=== PATIENT | male | born 1990 | race Caucasian/White ===

== ENCOUNTER 2020-06-11 11:12 | Emergency (ER) | payer OTHER ==
[~2020-06-11] VITALS: Ht 170.2 cm; Wt 71.3 kg
[2020-06-11 11:13] VITALS: BP 135/76
[2020-06-11] MEDS ORDERED: FINA5TAB2 PO (11:18)
[2020-06-11 11:56] LABS: BASO % 0.4 % (0.0-1.0); EOS # 0.1 10^3/uL (0.0-0.5); EOS % 1.4 % (0.0-3.0); HEMATOCRIT 44.7 % (42.0-52.0); HEMOGLOBIN 15.2 g/dl (13.5-17.5); LYMPH # 1.2 10^3/uL (1.5-5.0); LYMPH % 11.8 % (24.0-44.0); MEAN CORPUSCULAR HEMOGLOBIN 29.2 pg (27.0-33.0); MONO # 0.7 10^3/uL (0.0-0.8); MONO % 6.7 % (0.0-5.0); NEUTROPHILS # 8.1 10^3/uL (1.5-8.5); NEUTROPHILS % 79.5 % (36.0-66.0); PLATELET COUNT, AUTOMATED 263 10^3/uL (150-450); WHITE BLOOD COUNT 10.1 10^3/uL (4.0-10.0)
--- NOTE | 2020-06-11 12:59 | REP ---
INDICATION: l flank pain r/o renal calc COMPARISON: None TECHNIQUE: Axial noncontrast images from the lung bases to the pubic symphysis with coronal and sagittal reformations. This CT examination was performed using the following dose reduction techniques: Automated exposure control, adjustment of mA and/or kv according to the patient's size, and use of iterative reconstruction technique. FINDINGS: There a 3 mm calculus in the region of the left bladder trigone which may represent recently passed stone or calculus lodged within the ureterovesical junction. Correlation with physical examination is recommended. The left kidney demonstrates no significant hydronephrosis or perinephric stranding and no further intrarenal calculi. The right kidney/ureter appears normal. Liver, spleen, pancreas, gallbladder, and bilateral adrenal glands are normal. The enteric system is without obstruction or acute inflammatory process. Further evaluation of the pelvis demonstrates normal age-appropriate prostate/seminal vesicles. No ascites. No free air. No adenopathy. Lung bases are clear. Musculoskeletal structures are intact. IMPRESSION: 3 mm calculus along the dependent portion of the bladder at the region of the left trigone represents either obstructing calculus in the ureterovesical junction or recently passed stone into the bladder. Correlation with physical examination is recommended. No further urinary tract pathology appreciated. <Electronically signed by David Mireles > 06/11/20 [id number]
== END 2020-06-11 13:33 | disposition home or self-care (01) ==
LOC: M ED 11:12
DX: N23 Unspecified renal colic (principal)